=== PATIENT | male | born 1995 | race African-American/Black ===

== ENCOUNTER 2018-07-13 05:41 | Emergency (ER) | payer BC, SELFPAY ==
[2018-07-13] MEDS ORDERED: IBUPROFEN 400 MG TAB ONE (06:40)
--- NOTE | 2018-07-13 07:26 | EDPHYS ---
Physician Documentation [facility] Name: Casper Prince Age: 23 yrs Sex: Male : 1995 Arrival Date: 07/13/2018 Time: 05:44 Bed 5 Private MD: ED Physician Carlos Eduardo Lam HPI: 07/13 06:35 This 23 yrs old Black Male presents to ER via Wheelchair with complaints of Ankle cp Injury. 06:35 The patient presents with pain, that is acute, swelling, tenderness. The complaints cp affect the left ankle. Onset: The symptoms/episode began/occurred last night. Context: The problem was sustained at a sports field or court, The patient can partially bear weight on the affected extremity. the patient is able to ambulate, with moderate difficulty. Associated signs and symptoms: Pertinent positives: left knee pain, Pertinent negatives: calf tenderness. Modifying factors: the symptoms are aggravated by weight bearing, movement. Severity of symptoms: in the emergency department the symptoms are unchanged, despite home interventions. Historical: - Allergies: 05:58 No Known Allergies; tl1 - Home Meds: 05:58 None [Active]; tl1 - PMHx: 05:58 None; tl1 - PSHx: 05:58 None; tl1 - Immunization history:: Adult Immunizations up to date. - Social history:: Smoking status: Patient/guardian denies using tobacco, never smoked. - Ebola Screening: : Patient negative for fever greater than or equal to 101.5 degrees Fahrenheit, and additional compatible Ebola Virus Disease symptoms Patient denies exposure to infectious person Patient denies travel to an Ebola-affected area in the 21 days before illness onset. ROS: 06:37 Eyes: Negative for injury, pain, redness, and discharge. cp 06:37 Constitutional: Negative for body aches, chills, fever, poor PO intake. 06:37 ENT: Negative for drainage from ear(s), ear pain, sore throat, difficulty swallowing, difficulty handling secretions. 06:37 Cardiovascular: Negative for chest pain, edema, palpitations. 06:37 Respiratory: Negative for cough, shortness of breath, wheezing. 06:37 Abdomen/GI: Negative for abdominal pain, vomiting, diarrhea, constipation. 06:37 Back: Negative for pain at rest, pain with movement. 06:37 MS/extremity: Positive for pain, swelling, tenderness, of the left lateral ankle, Negative for decreased range of motion, deformity. 06:37 Skin: Negative for cellulitis, rash. 06:37 Neuro: Negative for headache, numbness, tingling, weakness. 06:37 All other systems are negative. Exam: 06:39 Head/Face: Normocephalic, atraumatic. cp 06:39 Constitutional: The patient appears in no acute distress, alert, awake, non-toxic, well developed, well nourished. 06:39 Eyes: Periorbital structures: appear normal, Conjunctiva: normal, no exudate, no injection, Lids and lashes: appear normal, bilaterally. 06:39 ENT: External ear(s): are unremarkable, Nose: is normal, Mouth: is normal, Posterior pharynx: is normal, airway is patent. 06:39 Neck: ROM/movement: is normal, is supple, without pain, no range of motions limitations. 06:39 Chest/axilla: Inspection: normal. 06:39 Cardiovascular: Rate: bradycardic, Rhythm: regular. 06:39 Respiratory: the patient does not display signs of respiratory distress, Respirations: normal, no use of accessory muscles, no retractions, no splinting, no tachypnea. 06:39 Abdomen/GI: Exam negative for discomfort, distension, guarding, Inspection: abdomen appears normal. 06:39 Back: pain, is absent, ROM is normal. 06:39 Musculoskeletal/extremity: Perfusion: the extremity is normally perfused throughout, Sensation intact. Joints: All joints are normal except the left knee displays tenderness, the left ankle displays painful range of motion, swelling, tenderness. 06:39 Skin: cellulitis, is not appreciated, no rash present. Vital Signs: 05:59 BP 112 / 74; Pulse 61; Resp 17; Temp 98.9; Pulse Ox 100% ; Weight 72.57 kg; Height 6 tl1 ft. 1 in. (185.42 cm); Pain 8/10; 06:33 BP 129 / 81; Pulse 59; Resp 17; Pulse Ox 100% on R/A; tl1 07:28 BP 109 / 71; Pulse 48; Resp 14; Pulse Ox 100% ; bp 05:59 Body Mass Index 21.11 (72.57 kg, 185.42 cm) tl1 Procedures: 07:50 Splinting: Splint applied to left ankle using Air Cast, applied by nurse. Examined by cp me, post splint application: neurovascular intact, Patient tolerated well. 07:50 Crutch training provided to patient and/or family. Return demonstration given. cp MDM: 06:13 Patient medically screened. cp 06:35 Differential diagnosis: fracture, sprain, dislocation. cp 07:25 Data reviewed: vital signs, nurses notes, radiologic studies, plain films, and as a cp result, I will discharge patient. 07:25 Test interpretation: by ED physician or midlevel provider: plain radiologic studies. cp Counseling: I had a detailed discussion with the patient and/or guardian regarding: the historical points, exam findings, and any diagnostic results supporting the discharge/admit diagnosis, radiology results, to return to the emergency department if symptoms worsen or persist or if there are any questions or concerns that arise at home. Response to treatment: the patient's symptoms have mildly improved after treatment. 07/13 06:03 Order name: Ankle Left 3 View XRAY bb 07/13 06:30 Order name: XRAY Knee LEFT 3 view cp 07/13 07:24 Order name: Crutches; Complete Time: 07:37 cp 07/13 07:24 Order name: Ankle Splint: Aircast; Complete Time: 07:37 cp Administered Medications: 06:33 Drug: Ibuprofen 800 mg Route: PO; tl1 07:30 Follow up: Response: Pain is decreased bp Disposition: 07/13/18 07:26 Discharged to Home. Impression: Sprain of ankle - Left, Pain in left knee. - Condition is Stable. - Discharge Instructions: Elastic Bandage and RICE, Ankle Sprain, Knee Pain. - Prescriptions for Naprosyn 500 mg Oral Tablet - take 1 tablet by ORAL route 2 times per day take with food; 20 tablet. - Medication Reconciliation Form, Thank You Letter, Antibiotic Education, Prescription Opioid Use form. - Follow up: Jet Fuentes MD; When: 2 - 3 days; Reason: Recheck today's complaints. - Problem is new. - Symptoms have improved. Addendum: 07/15/2018 04:07 Co-signature as Attending Physician, Carlos Eduardo Lam MD. g s Signatures: Dispatcher [employer] EDMS Lucita Obrien RN RN tl1 Barron Zheng PA PA cp Starr, Gregory, MD MD Lucie, Sergio, RN RN bp Corrections: (The following items were deleted from the chart) 07/13 07:52 07:26 07/13/2018 07:26 Discharged to Home. Impression: Sprain of ankle - Left; Pain in bp left knee. Condition is Stable. Forms are Medication Reconciliation Form, Thank You Letter, Antibiotic Education, Prescription Opioid Use. Follow up: Jet Fuentes; When: 2 - 3 days; Reason: Recheck today's complaints. Problem is new. Symptoms have improved. cp
--- NOTE | 2018-07-13 07:26 | ER ---
Nurse's Notes [facility] Name: Casper Prince Age: 23 yrs Sex: Male : 1995 Arrival Date: 07/13/2018 Time: 05:44 Bed 5 Private MD: Diagnosis: Sprain of ankle-Left;Pain in left knee Presentation: 07/13 05:56 Presenting complaint: Patient states: I was playing soccer last night and rolled my tl1 left ankle and heard it crack. Transition of care: patient was not received from another setting of care. Onset of symptoms was July 12, 2018. Risk Assessment: Do you want to hurt yourself or someone else? Patient reports no desire to harm self or others. Initial Sepsis Screen: Does the patient meet any 2 criteria? No. Patient's initial sepsis screen is negative. Does the patient have a suspected source of infection? No. Patient's initial sepsis screen is negative. Care prior to arrival: None. 05:56 Method Of Arrival: Wheelchair tl1 05:56 Acuity: NORRIS 4 tl1 Historical: - Allergies: 05:58 No Known Allergies; tl1 - Home Meds: 05:58 None [Active]; tl1 - PMHx: 05:58 None; tl1 - PSHx: 05:58 None; tl1 - Immunization history:: Adult Immunizations up to date. - Social history:: Smoking status: Patient/guardian denies using tobacco, never smoked. - Ebola Screening: : Patient negative for fever greater than or equal to 101.5 degrees Fahrenheit, and additional compatible Ebola Virus Disease symptoms Patient denies exposure to infectious person Patient denies travel to an Ebola-affected area in the 21 days before illness onset. Screenin:02 Abuse screen: Denies threats or abuse. Denies injuries from another. Nutritional tl1 screening: No deficits noted. Tuberculosis screening: No symptoms or risk factors identified. Fall Risk None identified. Assessment: 06:00 General: Appears in no apparent distress. Behavior is calm, cooperative, appropriate tl1 for age. Pain: Complains of pain in left lateral ankle and left medial ankle Pain currently is 8 out of 10 on a pain scale. Quality of pain is described as aching, pressure, sharp. Neuro: Level of Consciousness is awake, alert, obeys commands, Oriented to person, place, time, situation. Cardiovascular: Denies chest pain. Respiratory: Airway is patent Trachea midline Respiratory effort is even, unlabored. GI: No signs and/or symptoms were reported involving the gastrointestinal system. : No signs and/or symptoms were reported regarding the genitourinary system. EENT: No signs and/or symptoms were reported regarding the EENT system. Derm: Skin is pink, warm \T\ dry. Skin temperature is warm. Musculoskeletal: Circulation, motion, and sensation intact. Capillary refill < 3 seconds, Swelling present in left lateral ankle and left medial ankle Tenderness present in left lateral ankle and left medial ankle. 07:00 Reassessment: RECD REPORT FROM LUCITA VELÁZQUEZ. 23YO BM P/W L ANKLE PAIN AFTER SOCCER. NO bp OBVIOUS DEFORMITY. XRAY RESULTS PENDING. 07:51 Reassessment: PT D/C HOME VIA CRUTCHES, DX WITH ANKLE SPRAIN. bp Vital Signs: 05:59 BP 112 / 74; Pulse 61; Resp 17; Temp 98.9; Pulse Ox 100% ; Weight 72.57 kg; Height 6 tl1 ft. 1 in. (185.42 cm); Pain 8/10; 06:33 BP 129 / 81; Pulse 59; Resp 17; Pulse Ox 100% on R/A; tl1 07:28 BP 109 / 71; Pulse 48; Resp 14; Pulse Ox 100% ; bp 05:59 Body Mass Index 21.11 (72.57 kg, 185.42 cm) tl1 ED Course: 05:44 Patient arrived in ED. ds1 05:56 Lucita Obrien, MELANIA is Primary Nurse. tl1 05:57 Triage completed. tl1 05:59 Arm band placed on right wrist. Affected limb iced. tl1 06:02 No provider procedures requiring assistance completed. Patient did not have IV access tl1 during this emergency room visit. 06:13 Barron Zheng PA is PHCP. cp 06:13 Carlos Eduardo Lam MD is Attending Physician. cp 06:18 X-ray completed. Portable x-ray completed in exam room. Patient tolerated procedure kw well. 06:19 Ankle Left 3 View XRAY In Process Unspecified. EDMS 07:00 Patient has correct armband on for positive identification. Bed in low position. Call bp light in reach. Side rails up X2. Adult w/ patient. 07:04 X-ray completed. Portable x-ray completed in exam room. Patient tolerated procedure kw well. 07:14 XRAY Knee LEFT 3 view In Process Unspecified. EDMS 07:25 Jet Fuentes MD is Referral Physician. cp 07:35 Crutch training done. Air stirrup applied to left ankle. 3 Administered Medications: 06:33 Drug: Ibuprofen 800 mg Route: PO; tl1 07:30 Follow up: Response: Pain is decreased bp Outcome: 07:26 Discharge ordered by MD. cp 07:51 Discharged to home with crutches. bp 07:51 Condition: stable 07:51 Discharge instructions given to patient, Instructed on discharge instructions, follow up and referral plans. medication usage, crutch walking, Demonstrated understanding of instructions, follow-up care, medications, crutch walking, Prescriptions given X 1. 07:52 Patient left the ED. bp Signatures: Dispatcher [employer] EDNC LimDenise modi ds1 Chiara Maurer Tonya, RN RN tl1 Barron Zheng PA PA Xiomara Sam 3 Sergio Faulkner, RN RN bp
--- NOTE | 2018-07-13 07:40 | RAD REPORT ---
EXAM DESCRIPTION: RAD - Ankle Left 3 View -07/13/2018 6:26 am CLINICAL HISTORY: Left ankle pain status post injury FINDINGS: No fracture or dislocation is seen.
--- NOTE | 2018-07-13 13:12 | RAD REPORT ---
EXAM DESCRIPTION: RAD - Knee Left 3 View - 07/13/2018 7:14 am CLINICAL HISTORY: Knee pain, soccer injury COMPARISON: None. FINDINGS: No fracture, dislocation or periosteal reaction.No joint effusion seen. No joint space denisse rowing. No soft tissue abnormality. IMPRESSION: Negative left knee. Clinical concerns for internal derangement or occult bony injury could be further assessed with MR im aging.
== END 2018-07-13 07:52 | disposition home or self-care (01) ==
LOC: ER 05:41
DX: S93.402A Sprain of unspecified ligament of left ankle, initial encounter (principal); X58.XXXA Exposure to other specified factors, initial encounter; Y93.9 Activity, unspecified; Y92.328 Other athletic field as the place of occurrence of the external cause
CPT/HCPCS: 99284